=== PATIENT | male | born 1975 | race Caucasian/White ===

== ENCOUNTER → 2017-01-22 | Outpatient (CLI) | payer OTHER, BC ==
--- NOTE | 2017-01-22 08:45 | MRI ---
Study: MRI of the Right Tibia/Fibula. Indication: OTHER SPECIFIED INJURY OF RT ACHILLES TENDON Technique: Multiplanar, multi sequence MRI of the right tibial/fibula was obtained without intravenous contrast. Comparison: None. FINDINGS: Acute full-thickness tear of the critical zone of the Achilles tendon noted on a background of high-grade tendinosis. The proximal tendon fibers are retracted to the level of the distal tibial diaphysis with a tear gap measuring 5.4 cm. Surrounding edema and hemorrhage noted. Associated extensive intramuscular edema throughout the medial and lateral heads of the gastrocnemius musculature extending along the myotendinous junctions indicating grade 2 muscle strains. Visualized soleus musculature unremarkable. Moderate subcutaneous edema posteriorly. No acute fracture of the tibia or fibula. IMPRESSION: Full-thickness tear critical zone Achilles tendon on a background of high-grade tendinosis. Associated grade 2 strains of the medial and lateral gastrocnemius musculature noted. Examination not optimized to evaluate the knee or ankle for internal derangement. Electronically signed by: Ryan Capps MD 01/22/2017 8:43 AM CDT
== END ==
LOC: MRI 07:00
PROVIDERS: ATTEND Family Medicine
DX: S86.011A Strain of right Achilles tendon, initial encounter (principal); S96.811A Strain of other specified muscles and tendons at ankle and foot level, right foot, initial encounter

== ENCOUNTER 2017-04-11 03:54 | Emergency (ER) | payer OTHER, BC ==
[2017-04-11] MEDS ORDERED: NITROGLYCERIN 0.4 MG 25 EA TAB SL ONE (04:06)
[2017-04-11] MEDS ORDERED: SODIUM CHLORIDE 0.9% (FLUSH) 10 ML SYG IV PRN (04:06)
[2017-04-11] MEDS ORDERED: ASPIRIN TABLET 325 MG TAB PO ONE (04:06)
--- NOTE | 2017-04-11 04:30 | ED.PDOC ---
History of Present Illness - General Chief Complaint: Cardiovascular Problem Stated Complaint: chest pain x's 2 days Time Seen by Provider: 04/11/17 04:25 Source: patient, RN notes reviewed, Vital Signs reviewed - History of Present Illness Initial Comments: 41 YEAR OLD WHITE MALE COMPLAINTS OF CHEST PAIN LEFT PECTORAL RADIATING TOWARD THE LEFT SHOULDER AND SCAPULA LAST 2 DAYS ON AND OFF WITH INCREASE IN INTENSITY HE HAS NO KNOWN CORONARY RISK FACTORS HE BURNS NOT KNOW ABOUT HIS BIOLOGICAL DAD AND FAMILY HE HAS RIGHT ACHILLES TENDON REPAIR 02016 HE HAS NO RISK FACTORS FOR DVT HE HAS BEEN TAKING NEXIUM FOR YEARS Timing/Duration: days Location: substernal, shoulder Activities at Onset: none Prior Chest Pain/Cardiac Workup: no prior chest pain Improving Factors: nothing Nitro Today/Relief: no nitro taken today Aspirin Treatment Today: no aspirin today Associated Symptoms: denies symptoms, chest pain Allergies/Adverse Reactions: Allergies NO KNOWN ALLERGY Allergy (Verified 04/11/17 04:06) Home Medications: Ambulatory Orders Esomeprazole Magnesium [Nexium] 40 mg PO DAILY 04/11/17 Review of Systems - Review of Systems Constitutional: States: no symptoms reported EENTM: States: no symptoms reported Respiratory: States: no symptoms reported Cardiology: States: see HPI Gastrointestinal/Abdominal: States: no symptoms reported Genitourinary: States: no symptoms reported Musculoskeletal: States: no symptoms reported Skin: States: no symptoms reported Neurological: States: no symptoms reported Endocrine: States: no symptoms reported Hematologic/Lymphatic: States: no symptoms reported Past Medical History (General) - Patient Medical History Hx Seizures: No Hx Stroke: No Hx Dementia: No Hx Asthma: No Hx of COPD: No Hx Cardiac Disorders: No Hx Congestive Heart Failure: No Hx Pacemaker: No Hx Hypertension: No Hx Thyroid Disease: No Hx Diabetes: No Hx Gastroesophageal Reflux: No Hx Renal Disease: No Hx Cancer: No Hx of HIV: No Hx Hepatitis C: No Hx MRSA: No - Vaccination History Hx Tetanus, Diphtheria Vaccination: No Hx Influenza Vaccination: No - Social History Hx Tobacco Use: No Hx Alcohol Use: Yes - social Hx Substance Use: No Hx Substance Use Treatment: No Hx Depression: No Family Medical History - Family History Mother Family History: No Known Living Status: Still Living Physical Exam - Physical Exam General Appearance: Alert, Comfortable Neck: non-tender, full range of motion, supple Respiratory: chest non-tender, lungs clear Cardiovascular/Chest: normal peripheral pulses, regular rate, rhythm, no edema, no gallop, no JVD, no murmur Peripheral Pulses: radial,right: 2+, radial,left: 2+, femoral,right: 2+, femoral ,left: 2+ Gastrointestinal/Abdominal: normal bowel sounds, non tender, soft, no organomegaly, no pulsatile mass Extremity: normal range of motion, non-tender, normal inspection 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 Copy, Patient Portal Self Enrollment Instructions: DI for Chest Pain Diet: regular diet - PLEASE CALL YOUR PCP ON WEDNESDAY AND FOLLOW UP WITH [facility] Referrals: Rajat Stokes III, MD [Primary Care Provider] - 1-2 Weeks Home Medications: Ambulatory Orders Esomeprazole Magnesium [Nexium] 40 mg PO DAILY 04/11/17
--- NOTE | 2017-04-11 04:31 | RAD ---
Examination: XR CHEST 1 VIEW dated 04/11/2017 4:06 AM RECORD RETRIEVAL SPECIALIST History: chest pain Comparison: 10/04/2013 Technique: Frontal view of the chest Findings: The lungs are clear bilaterally. No pneumothorax or pleural effusion. The cardiomediastinal silhouette is within normal limits. Impression: No acute disease. Electronically signed by: Ted Garnica MD 04/11/2017 4:30 AM RECORD RETRIEVAL SPECIALIST
[2017-04-11 05:09] VITALS: TEMP 96
[2017-04-11 06:02] VITALS: BP 124/83; O2SAT 98
[2017-04-11] MEDS ORDERED: LIDOCAINE VIS-MYLANTA 30 ML UD PO ONE (06:44)
[2017-04-11] MEDS ORDERED: SUCRALFATE 1 GM/10 ML 1 GM UD PO ONE (06:44)
== END 2017-04-11 07:16 | disposition home or self-care (01) ==
LOC: ER 03:54
DX: R07.9 Chest pain, unspecified (principal)

== ENCOUNTER 2017-09-27 09:14 | Emergency (ER) | payer BC ==
[2017-09-27 09:34] VITALS: TEMP 98.6
--- NOTE | 2017-09-27 10:33 | RAD ---
EXAM DESCRIPTION: KUB CLINICAL HISTORY: back pain 1 week, urinary symptoms COMPARISON: None. FINDINGS: Single supine view of the abdomen was submitted. There is no evidence of bowel obstruction. There is no abnormal calcification within the abdomen. There is no acute osseous process visualized. Moderate stool is in the colon. IMPRESSION: Moderate stool. Electronically signed by: Joao Arthur 09/27/2017 10:31 AM CDT
[2017-09-27] MEDS ORDERED: SODIUM CHLORIDE 0.9% 1000ML 1,000 ML IVS ONE (10:44)
[2017-09-27] MEDS ORDERED: MAGNESIUM HYDROXIDE 30 ML UD PO ONE (11:36)
--- NOTE | 2017-09-27 11:39 | ED.PDOC ---
History of Present Illness - General Chief Complaint: Problem Stated Complaint: possible kidney stones Time Seen by Provider: 09/27/17 09:35 Source: patient Exam Limitations: no limitations - History of Present Illness Initial Comments: the patient is a 42-year-old male presenting to the emergency room secondary to diffuse low back pain with achiness sometimes extending down towards his buttocks for the last couple of weeks. He reports possibly some low -grade fevers but no objective fevers. No nausea vomiting or diarrhea. May be some mild urinary frequency. He has had a urinary tract infection before. No dysuria. On exam he is not exhibiting any point tenderness as far as abdominal pain. No rebound or peritoneal signs. No palpable masses. no costovertebral angle tenderness. No step-offs. No bruising. Timing/Duration: unsure Severity: mild Improving Factors: nothing Worsening Factors: nothing Associated Symptoms: denies symptoms Allergies/Adverse Reactions: Allergies NO KNOWN ALLERGY Allergy (Verified 04/11/17 04:06) Home Medications: Ambulatory Orders Esomeprazole Magnesium [Nexium] 40 mg PO DAILY 04/11/17 Review of Systems - Review of Systems Constitutional: States: malaise EENTM: States: no symptoms reported Respiratory: States: no symptoms reported Cardiology: States: no symptoms reported Gastrointestinal/Abdominal: States: no symptoms reported Genitourinary: States: no symptoms reported Musculoskeletal: States: back pain Skin: States: no symptoms reported Neurological: States: no symptoms reported Endocrine: States: no symptoms reported All other Systems: No Change from Baseline Past Medical History (General) - Patient Medical History Hx Seizures: No Hx Stroke: No Hx Dementia: No Hx Asthma: No Hx of COPD: No Hx Cardiac Disorders: No Hx Congestive Heart Failure: No Hx Pacemaker: No Hx Hypertension: No Hx Thyroid Disease: No Hx Diabetes: No Hx Gastroesophageal Reflux: Yes Hx Renal Disease: No Hx Cancer: No Hx of HIV: No Hx Hepatitis C: No Hx MRSA: No MRSA Source:: Wound - Vaccination History Hx Tetanus, Diphtheria Vaccination: No Hx Influenza Vaccination: No Hx Pneumococcal Vaccination: No Immunizations Up to Date: Yes - Social History Hx Tobacco Use: No Hx Alcohol Use: Yes - social Hx Substance Use: No Hx Substance Use Treatment: No Hx Depression: No - Triage Comment ED Triage Comment: Patient has right side flank pain for the past 2 weeks off and on. Today the pain had gotten much worse. Family Medical History - Family History Mother Family History: No Known Living Status: Still Living Physical Exam - Physical Exam General Appearance: Alert, Comfortable, No apparent distress Eye Exam: bilateral normal Ears, Nose, Throat: hearing grossly normal, normal ENT inspection Neck: full range of motion, supple Respiratory: lungs clear, normal breath sounds, no respiratory distress, no accessory muscle use Cardiovascular/Chest: normal peripheral pulses, regular rate, rhythm, no edema Peripheral Pulses: radial,right: 2+, radial,left: 2+, dorsalis pedis,right: 2+, dorsalis pedis,left: 2+ Gastrointestinal/Abdominal: non tender, soft Rectal Exam: deferred Back Exam: normal inspection, no CVA tenderness, no vertebral tenderness Extremity: non-tender, normal inspection, no pedal edema, normal capillary refill 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 Source of this is not entirely certain however constipation may be playing a role. He is receiving a dose of milk of magnesia here today and he should take 1 dose of Zearing oil when he gets home. He did receive a liter of IV fluids here today. The patient does have a mildly low white blood cell count and a mildly elevated monocyte percentage. This may simply be an anomaly for today. He should have levels rechecked in 1-2 weeks. This may also correlate to a low-grade viral infection which could also be contributing to symptoms. ER warnings are given for any worsening. He should plan on following up with his primary care doctor within the next week for reevaluation. - Results/Orders Results/Orders: Laboratory Tests 09/27/17 09/27/17 09/27/17 10:22 10:47 10:47 WBC 3.2 L RBC 5.37 Hgb 16.7 Hct 48.8 MCV 90.9 MCH 31.1 H MCHC 34.2 RDW 13.5 Plt Count 151 MPV 9.5 Absolute Neuts (auto) 2.10 Absolute Lymphs (auto) 0.70 L Absolute Monos (auto) 0.40 Absolute Eos (auto) 0.00 Absolute Basos (auto) 0.00 Neutrophils % 63.2 Lymphocytes % 22.0 Monocytes % 13.6 H Eosinophils % 0.1 L Basophils % 1.1 Sodium 136 Potassium 3.8 Chloride 102 Carbon Dioxide 27 Anion Gap 10.8 L BUN 13 Creatinine 1.03 BUN/Creatinine Ratio 12.6 Random Glucose 111 H Serum Osmolality 272.8 L Calcium 9.3 Total Bilirubin 1.0 AST 31 ALT 66 H Alkaline Phosphatase 64 Serum Total Protein 8.1 Albumin 4.4 Globulin 3.7 H Albumin/Globulin Ratio 1.2 Amylase 33 Lipase 25 Urine Color Yellow Urine Appearance Clear Urine pH 6.0 Ur Specific [place] 1.010 Urine Protein Negative Urine Glucose (UA) Negative Urine Ketones Negative Urine Blood Trace-intact H Urine Nitrite Negative Urine Bilirubin Negative Urine Urobilinogen 0.2 Ur Leukocyte Esterase Negative Urine RBC 0 Urine WBC 0 Ur Epithelial Cells 0 Urine Bacteria 0 KUB of the abdomen showsmoderate constipation. No evidence of any kidney stone in the ureters. Departure - Departure Clinical Impression: Constipation Qualifiers: Constipation type: unspecified constipation type Qualified Code(s): K59.00 - Constipation, unspecified Low back pain Qualifiers: Chronicity: unspecified Back pain laterality: bilateral Sciatica presence: without sciatica Qualified Code(s): M54.5 - Low back pain Disposition: Discharge to Home or Self Care Condition: Fair Departure Forms: ED Discharge - Pt. Copy, Patient Portal Self Enrollment Instructions: DI for Low Back Pain, DI for Constipation Diet: regular diet - High-fiber low-fat Activity: increase activity as tolerated Referrals: Rajat Stokes III, MD [Primary Care Provider] - 1-2 Weeks Home Medications: Ambulatory Orders Esomeprazole Magnesium [Nexium] 40 mg PO DAILY 04/11/17 Additional Instructions: the patient is a 42-year-old male presenting with some mid to low back discomfort for the last couple of weeks. Source of this is not entirely certain however constipation may be playing a role. He is receiving a dose of milk of magnesia here today and he should take 1 dose of Zearing oil when he gets home. He did receive a liter of IV fluids here today. The patient does have a mildly low white blood cell count and a mildly elevated monocyte percentage. This may simply be an anomaly for today. He should have levels rechecked in 1-2 weeks. This may also correlate to a low-grade viral infection which could also be contributing to symptoms. ER warnings are given for any worsening. He should plan on following up with his primary care doctor within the next week for reevaluation.
[2017-09-27 11:59] VITALS: BP 121/80; O2SAT 98
== END 2017-09-27 11:59 | disposition home or self-care (01) ==
LOC: ER 09:14
DX: M54.5 Low back pain (principal); K59.00 Constipation, unspecified; K21.9 Gastro-esophageal reflux disease without esophagitis
CPT/HCPCS: 36415; 74018; 80053; 81001; 82150; 83690; 85025; J7030